=== PATIENT | female | born 1990 | race Caucasian/White ===

== ENCOUNTER 2017-08-06 15:21 | Emergency (ER) | payer OTHER ==
[~2017-08-06] VITALS: Ht 172.7 cm; Wt 56.2 kg
[2017-08-06 15:24] VITALS: BP 123/90; PULSE 90; RESP 15; TEMP 98.5; O2SAT 99
--- NOTE | 2017-08-06 16:03 | PD ---
HPI Chief Complaint: Cold / Flu Symptoms Time Seen by Provider: 15:48 Travel History International Travel<30 days: No Contact w/Intl Traveler<30days: No Traveled to known affect area: No History of Present Illness HPI This 27-year-old female says she is not feeling well. She had some blurry vision earlier and felt very hot associated fever. She has had some nasal congestion and some mild cough. She has a history of lupus, thyroid trouble and hepatitis C. She has never been . Her last period was 2 months ago she has had some nausea PFSH Past Medical History Blood Disorders: No Bipolar Disorder: Yes Anxiety: Yes Cancer: No Cardiovascular Problems: No Diabetes: No Diminished Hearing: No Endocrine: No Genitourinary: No Hepatitis: No Hiatal Hernia: No Inguinal Hernia: Yes (AGE 10 YRS REPAIRED) Musculoskeletal: No Neurologic: No Reproductive: No Immunizations Current: Yes Thyroid Disease: No Tetanus Vaccination: > 5 Years Influenza Vaccination: No ?: Not LMP: 2 mo ago, it is "normal" for her Menopausal: No : 0 Past Surgical History Abdominal Surgery: Yes (RIGHT ING. HERNIA) Cardiac Surgery: No Ear Surgery: No Endocrine Surgery: No Eye Surgery: No Genitourinary Surgery: No Gynecologic Surgery: No Oral Surgery: Yes (WISDOM TEETH EXTRACT.) Pacemaker: No Thoracic Surgery: No Tonsillectomy: Yes Other Surgery: Yes Social History Alcohol Use: No Tobacco Use: Yes (quit, uses vaporizer now) Substance Use: Yes (COCAINE, MARIJUANA IN PAST) Allergies-Medications (Allergen,Severity, Reaction): Coded Allergies: No Known Allergies (Verified , 08/06/17) Reported Meds & Prescriptions Reported Meds & Active Scripts Active No Active Prescriptions or Reported Medications Review of Systems General / Constitutional: No: Fever, Chills Eyes: No: Diploplia HENT: Positive: Headaches Cardiovascular: No: Chest Pain or Discomfort, Palpitations Respiratory: Positive: Sneezing, No: Cough, Shortness of Breath Gastrointestinal: Positive: Nausea, No: Vomiting Genitourinary: No: Urgency, Frequency Musculoskeletal: No: Myalgias Skin: No Rash Neurologic: Positive: Weakness Physical Exam Narrative GENERAL: Well-developed female SKIN: Focused skin assessment warm/dry. HEAD: Atraumatic. Normocephalic. EYES: Pupils equal and round. No scleral icterus. No injection or drainage. ENT: No nasal bleeding or discharge. Mucous membranes pink and moist. NECK: Trachea midline. No JVD. CARDIOVASCULAR: Regular rate and rhythm. No murmur appreciated. RESPIRATORY: No accessory muscle use. Clear to auscultation. Breath sounds equal bilaterally. GASTROINTESTINAL: Abdomen soft, non-tender, nondistended. Hepatic and splenic margins not palpable. MUSCULOSKELETAL: No obvious deformities. No clubbing. No cyanosis. No edema. NEUROLOGICAL: Awake and alert. No obvious cranial nerve deficits. Motor grossly within normal limits. Normal speech. PSYCHIATRIC: Appropriate mood and affect; insight and judgment normal. Data Data Last Documented VS Vital Signs Date Time Temp Pulse Resp B/P (MAP) Pulse Ox O2 Delivery O2 Flow Rate FiO2 08/06/17 15:24 98.5 90 15 123/90 (101) 99 MDM Medical Decision Making Medical Screen Exam Complete: Yes Emergency Medical Condition: Yes Medical Record Reviewed: Yes Differential Diagnosis Differential includes viral syndrome, Narrative Course test is positive. Patient appears otherwise well. I suspect her symptoms are related to . There is no vaginal bleeding or abdominal pain so I don't think further evaluation warranted at this time Diagnosis Primary Impression: Qualified Codes: Z34.90 - Encounter for supervision of normal , unspecified, unspecified trimester Scripts No Active Prescriptions or Reported Meds Disposition: 01 DISCHARGE HOME Condition: Stable Angus Underwood MD Aug 06, 2017 16:03
== END 2017-08-06 16:43 | disposition home or self-care (01) ==
LOC: PHED 15:21
DX: Z32.01 Encounter for pregnancy test, result positive (principal)
CPT/HCPCS: 99282

== ENCOUNTER → 2017-11-03 | Outpatient (CLI) | payer OTHER | LOC: HPND 12:11 | PROVIDERS: ATTEND Obstetrics & Gynecology | DX: O28.0 Abnormal hematological finding on antenatal screening of mother (principal); O98.512 Other viral diseases complicating pregnancy, second trimester; O99.282 Endocrine, nutritional and metabolic diseases complicating pregnancy, second trimester | CPT/HCPCS: 36415; 76811 ==

== ENCOUNTER 2017-12-01 16:50 | Emergency (ER) | payer OTHER ==
[~2017-12-01] VITALS: Ht 172.7 cm; Wt 64.3 kg
[2017-12-01 16:53] VITALS: BP 105/56; PULSE 82; RESP 18; TEMP 99.6; O2SAT 100
[2017-12-01] MEDS ORDERED: ZOFR4TAB PO (17:04)
[2017-12-01] MEDS ORDERED: SODIUM CHLOR 0.9% 1000 ML INJ 1,000 ML IV ONE (17:45)
[2017-12-01 17:58] LABS: AUTOMATED NEUTROPHIL # 4.4 TH/MM3 (1.8-7.7); BASOPHIL # 0.1 TH/MM3 (0-0.2); BASOPHIL % 1.5 % (0.0-2.0); EOSINOPHIL % 0.3 % (0.0-4.0); HEMATOCRIT 34.3 % (35.0-46.0); HEMOGLOBIN 11.5 GM/DL (11.6-15.3); LYMPH % 17.6 % (9.0-44.0); MEAN CORPUSCULAR HEMOGLOBIN 30.5 PG (27.0-34.0); MEAN CORPUSCULAR HGB CONC 33.5 % (32.0-36.0); MEAN PLATELET VOLUME 8.3 FL (7.0-11.0); MONO % 5.7 % (0.0-8.0); MONOCYTE # 0.3 TH/MM3 (0-0.9); NEUT % 74.9 % (16.0-70.0); PLATELET COUNT 145 TH/MM3 (150-450); RED BLOOD COUNT 3.77 MIL/MM3 (4.00-5.30); RED CELL DISTRIBUTION WIDTH 11.8 % (11.6-17.2); WHITE BLOOD COUNT 5.8 TH/MM3 (4.0-11.0)
--- NOTE | 2017-12-01 18:06 | PD ---
HPI Chief Complaint: Cold / Flu Symptoms Time Seen by Provider: 17:31 Travel History International Travel<30 days: No Contact w/Intl Traveler<30days: No Traveled to known affect area: No History of Present Illness HPI Patient is a 27 year old female, 5 months , who comes in complaining of cough, congestion for 5 days. She says she had a fever of 102 this morning. She has been taking Tylenol and over the counter cold medications with minimal relief. She says that she last took any medications 2 hours ago. She says she has body aches and experiences occasional shortness of breath. She did not receive a flu shot this year. Her OB advised she come to the ED to get checked out. PFSH Past Medical History Autoimmune Disease: Yes (Lupus) Blood Disorders: No Bipolar Disorder: Yes Anxiety: Yes Cancer: No Cardiovascular Problems: No Diabetes: No Diminished Hearing: No Endocrine: No Genitourinary: No Hepatitis: No Hiatal Hernia: No Inguinal Hernia: Yes (AGE 10 YRS REPAIRED) Medical other: Yes (Hep C) Musculoskeletal: No Neurologic: No Reproductive: No Immunizations Current: Yes Thyroid Disease: Yes (hypothyroid) Tetanus Vaccination: Unknown Influenza Vaccination: No ?: Menopausal: No : 0 Past Surgical History Abdominal Surgery: Yes (RIGHT ING. HERNIA) Cardiac Surgery: No Ear Surgery: No Endocrine Surgery: No Eye Surgery: No Genitourinary Surgery: No Gynecologic Surgery: No Oral Surgery: Yes (WISDOM TEETH EXTRACT.) Pacemaker: No Thoracic Surgery: No Tonsillectomy: Yes Other Surgery: Yes Social History Alcohol Use: No Tobacco Use: Yes (quit, uses vaporizer now) Substance Use: Yes (COCAINE, MARIJUANA IN PAST) Allergies-Medications (Allergen,Severity, Reaction): Coded Allergies: No Known Allergies (Verified , 08/06/17) Reported Meds & Prescriptions Reported Meds & Active Scripts Active Reported Zofran (Ondansetron HCl) 4 Mg Tab 4 Mg PO Q12HR PRN Review of Systems Except as stated in HPI: all other systems reviewed are Neg General / Constitutional: Positive: Fever HENT: No: Headaches, Lightheadedness Cardiovascular: No: Chest Pain or Discomfort Respiratory: Positive: Cough, Shortness of Breath Gastrointestinal: No: Nausea, Vomiting Genitourinary: No: Urgency, Dysuria Musculoskeletal: Positive: Myalgias, No: Edema Skin: No Rash, No Change in Pigmentation Neurologic: No: Weakness, Dizziness Physical Exam Narrative GENERAL: Awake and alert, in no acute distress. SKIN: Focused skin assessment warm/dry. HEAD: Atraumatic. Normocephalic. EYES: Pupils equal and round. No scleral icterus. ENT: Mucous membranes pink and moist. NECK: Trachea midline. No JVD. CARDIOVASCULAR: Regular rate and rhythm. No murmur appreciated. RESPIRATORY: No accessory muscle use. Clear to auscultation. Breath sounds equal bilaterally. GASTROINTESTINAL: Abdomen soft, non-tender, nondistended. MUSCULOSKELETAL: No obvious deformities. No clubbing. No cyanosis. No edema. NEUROLOGICAL: Awake and alert. No obvious cranial nerve deficits. Motor grossly within normal limits. Normal speech. PSYCHIATRIC: Appropriate mood and affect; insight and judgment normal. Data Data Last Documented VS Vital Signs Date Time Temp Pulse Resp B/P (MAP) Pulse Ox O2 Delivery O2 Flow Rate FiO2 12/01/17 16:53 99.6 82 18 105/56 (72) 100 Orders Orders Complete Blood Count With Diff (12/01/17 17:34) Comprehensive Metabolic Panel (12/01/17 17:34) Iv Access Insert/Monitor (12/01/17 17:34) Influenzae A/B Antigen (12/01/17 17:34) Sodium Chlor 0.9% 1000 Ml Inj (Ns 1000 M (12/01/17 17:45) Labs Laboratory Tests Test 12/01/17 17:55 12/01/17 18:11 White Blood Count 5.8 TH/MM3 Red Blood Count 3.77 MIL/MM3 Hemoglobin 11.5 GM/DL Hematocrit 34.3 % Mean Corpuscular Volume 91.0 FL Mean Corpuscular Hemoglobin 30.5 PG Mean Corpuscular Hemoglobin Concent 33.5 % Red Cell Distribution Width 11.8 % Platelet Count 145 TH/MM3 Mean Platelet Volume 8.3 FL Neutrophils (%) (Auto) 74.9 % Lymphocytes (%) (Auto) 17.6 % Monocytes (%) (Auto) 5.7 % Eosinophils (%) (Auto) 0.3 % Basophils (%) (Auto) 1.5 % Neutrophils # (Auto) 4.4 TH/MM3 Lymphocytes # (Auto) 1.0 TH/MM3 Monocytes # (Auto) 0.3 TH/MM3 Eosinophils # (Auto) 0.0 TH/MM3 Basophils # (Auto) 0.1 TH/MM3 CBC Comment DIFF FINAL Differential Comment Blood Urea Nitrogen 6 MG/DL Creatinine 0.41 MG/DL Random Glucose 84 MG/DL Total Protein 5.8 GM/DL Albumin 2.4 GM/DL Calcium Level 7.7 MG/DL Alkaline Phosphatase 42 U/L Aspartate Amino Transf (AST/SGOT) 30 U/L Alanine Aminotransferase (ALT/SGPT) 28 U/L Total Bilirubin 0.3 MG/DL Sodium Level 137 MEQ/L Potassium Level 3.7 MEQ/L Chloride Level 105 MEQ/L Carbon Dioxide Level 24.2 MEQ/L Anion Gap 8 MEQ/L Estimat Glomerular Filtration Rate 185 ML/MIN MDM Medical Decision Making Medical Screen Exam Complete: Yes Emergency Medical Condition: Yes Medical Record Reviewed: Yes Differential Diagnosis pneumonia vs bronchitis vs influenza Narrative Course A 27-year-old female who comes in complaining of cough, congestion, fever, body aches. Exam shows no acute abnormalities. She is currently afebrile. Labs sent show no acute abnormalities. Flu swab is negative. Patient is refusing chest x-ray. She says she is artery taken azithromycin. I advised her that this is likely a viral illness. She says she would like antibiotics anyways. I did reinforce the fact that this can create resistance to antibiotics and then they will not work when she needs them. She says she still would rather try a different antibiotic. Given a prescription for Augmentin. Advised follow -up with her doctors. Advised to return to the ED as needed for any worsening symptoms. Diagnosis Primary Impression: Bronchitis Patient Instructions: Acute Bronchitis (ED), General Instructions Additional Instructions: Follow-up with your doctor. Drink plenty of fluids. Take Tylenol as needed for fever and pain. Scripts Amoxicillin-Clavulanate (Augmentin) 875-125 Mg Tab 1 TAB PO BID for Infection for 10 Days, #20 TAB 0 Refills Prov: Marie Webster MD 12/01/17 Disposition: 01 DISCHARGE HOME Condition: Stable Marie Webster MD Dec 01, 2017 18:06
[2017-12-01 18:31] LABS: CHLORIDE 105 MEQ/L (98-107); SODIUM (NA) 137 MEQ/L (136-145)
[2017-12-01 18:34] LABS: ALBUMIN 2.4 GM/DL (3.4-5.0); BICARBONATE 24.2 MEQ/L (21.0-32.0); BLOOD UREA NITROGEN 6 MG/DL (7-18); CALCIUM 7.7 MG/DL (8.5-10.1); GLUCOSE,RANDOM 84 MG/DL (74-106)
[2017-12-01 18:37] LABS: ALT (GPT) 28 U/L (10-53); AST (GOT) 30 U/L (15-37); CREATININE 0.41 MG/DL (0.50-1.00); GLOMERULAR FILTRATION RATE 185 ML/MIN (>89)
[2017-12-01 18:39] LABS: TOTAL BILIRUBIN ADULT 0.3 MG/DL (0.2-1.0); TOTAL PROTEIN 5.8 GM/DL (6.4-8.2)
[2017-12-01 18:40] LABS: ALKALINE PHOSPHATASE 42 U/L (45-117)
[2017-12-01] MEDS ORDERED: AUGM875T3 PO (18:46)
== END 2017-12-01 19:08 | disposition home or self-care (01) ==
LOC: PHEFT 16:50
DX: O99.512 Diseases of the respiratory system complicating pregnancy, second trimester (principal); J40 Bronchitis, not specified as acute or chronic; M32.9 Systemic lupus erythematosus, unspecified; F41.9 Anxiety disorder, unspecified; O99.282 Endocrine, nutritional and metabolic diseases complicating pregnancy, second trimester; E03.9 Hypothyroidism, unspecified
CPT/HCPCS: 80053; 85025; 87804; 96360; 99283; J7030

== ENCOUNTER → 2017-12-08 | Outpatient (CLI) | payer OTHER ==
[~2017-12-08] MED LIST: AUGM875T3 PO; ZOFR4TAB PO
== END ==
LOC: HPND 13:08
PROVIDERS: ATTEND Obstetrics & Gynecology
DX: O98.512 Other viral diseases complicating pregnancy, second trimester (principal); O99.282 Endocrine, nutritional and metabolic diseases complicating pregnancy, second trimester; O28.0 Abnormal hematological finding on antenatal screening of mother
CPT/HCPCS: 76816

== ENCOUNTER 2018-02-16 20:36 | Emergency (ER) | payer OTHER ==
--- NOTE | 2018-02-16 21:47 | PD ---
HPI Chief Complaint Complains of a burning severe pain in her upper mid back moved around to her back of her arms and then up in her neck and the back, no nausea vomiting diarrhea, no OB problem no bleeding, leakage,. Date Seen: Feb 16, 2018 Time Seen: 21:40 Travel History International Travel<30 Days: No Contact w/Intl Traveler<30Days: No Known Affected Area: No History of Present Illness HPI 27-year-old white female at [address] Woo for care and has been complaining of a burning she describes fairly severe pain in her upper mid back that radiated around both back of her arms and up the back of her neck. It was not getting better so she came to the hospital. Once she is here the pain is gone, she has no obstetric complaints no bleeding, leakage, heart rate tracing is reactive 33 weeks and there is only an occasional uterine irritability segment and she has no pain. She has not been taking any kind of antacid therapy. Weeks Gestation: 33 Para: 0 : 1 History Past Medical History Narrative Medical Lupus, cholestasis of is on medication Social History Alcohol Use: No Tobacco Use: No Substance Abuse: No Allergies-Medications (Allergen,Severity, Reaction): Coded Allergies: No Known Allergies (Verified , 08/06/17) Home Meds Active Scripts Amoxicillin-Clavulanate (Augmentin) 875-125 Mg Tab, 1 TAB PO BID for Infection for 10 Days, #20 TAB 0 Refills Prov:Marie Webster MD 12/01/17 Reported Medications Ondansetron (Zofran) 4 Mg Tab, 4 MG PO Q12HR Y for NAUSEA OR VOMITING, TAB 0 Refills 12/01/17 Review of Systems General / Constitutional: No: Fever, Weight Gain, Chills, Other Eyes: No: Diploplia, Blurred Vision, Visual changes, Pain, Photophobia HENT: No: Headaches, Vertigo, Lightheadedness Cardiovascular: No: Irregular Rhythm, Chest Pain or Discomfort, Palpitations, Tachycardia, Syncope, Varicosities, Edema, Cyanosis Respiratory: No: Cough, Short of Breath, Other Gastrointestinal: No: Nausea, Vomiting, Diarrhea Genitourinary: No: Decreased Urinary Output, Oliguria Musculoskeletal: No: Limited ROM, Weakness, Cramping, Edema, Pain Skin: No Rash, No Itching, No Dryness, No Lumps, No Change in Pigmentation, No Change in Nails, No Alopecia, No Lesions Neurologic: No: Weakness, Dizziness, Syncope, Focal Abnormalities, Coordination Problem, Headache, Slurred Speech, Seizures Psychiatric: No: Depression, Suicidal Ideations, Homicidal Ideation Endocrine: No: Heat Intolerance, Cold Intolerance, Polydipsia, Polyuria, Other Physical Exam Narrative GENERAL: Well-nourished, well-developed patient. SKIN: Warm and dry. HEAD: Normocephalic and atraumatic. EYES: No scleral icterus. No injection or drainage. ENT: No nasal drainage noted. Mucous membranes pink. Airway patent. NECK: Supple, trachea midline. No JVD. CARDIOVASCULAR: Regular rate and rhythm without murmurs, gallops, or rubs. RESPIRATORY: Breath sounds equal bilaterally. No accessory muscle use. BREASTS: Bilateral exam showed no masses , no retractions, no nipple discharge. ABDOMEN/GI: Abdomen soft, non-tender, bowel sounds present, no rebound, no guarding Gravid to [-33] weeks size Fundal Height: [33-] GENITOURINARY: External Genitalia: intact and normal in appearance BUS glands: [-] Cervix: [post-] Dilatation: [-0] Effacement: [0-] Station: [-3] Presentation: [-] Membranes: [intact ] Uterine Contractions: [Uterine irritability only-] FHT's: Category: [1-] Baseline: [-145] Reactive: [-R] Variability: [mod-] Decels: [none-] EXTREMITIES: No cyanosis or edema. BACK: Nontender without obvious deformity. No CVA tenderness. NEUROLOGICAL: Awake and alert. Motor and sensory grossly within normal limits. Five out of 5 muscle strength in all muscle groups. Normal speech. Data Data Labs Urine dip on OB ED negative MDM Interpretation(s) Patient is 27-year-old white female at [address] Woo for care and is supposed to see her tomorrow for a visit. Patient presents complaining of upper back burning pain that radiates around her both arms and up the back of her neck and now has disappeared after getting here. Quite likely related to gastric reflux Plan Plan for the patient to use [id number] antacids initially with Tums or possibly liquid antacid like Maalox or Mylanta. She can take [id number] Pepcid AC or Zantac 150 to cut down amount of acid in her stomach. Also sleep with her head elevated somewhat to let gravity work for her, and she is to follow-up with her OB provider tomorrow Diagnosis Diagnosis: Primary Impression: GERD (gastroesophageal reflux disease) Additional Impression: 33 weeks gestation of Disposition: 01 DISCHARGE HOME Condition: Stable Domingo Jenkins II, MD Feb 16, 2018 21:47
== END 2018-02-16 23:10 | disposition home or self-care (01) ==
LOC: HOBED 20:36
DX: O99.613 Diseases of the digestive system complicating pregnancy, third trimester (principal); K21.9 Gastro-esophageal reflux disease without esophagitis; O99.89 Other specified diseases and conditions complicating pregnancy, childbirth and the puerperium; M32.9 Systemic lupus erythematosus, unspecified; O26.613 Liver and biliary tract disorders in pregnancy, third trimester; K83.1 Obstruction of bile duct; Z3A.33 33 weeks gestation of pregnancy
CPT/HCPCS: 59025

== ENCOUNTER 2018-02-21 16:39 | Inpatient (IN) | payer OTHER ==
[~2018-02-21] VITALS: Ht 170.2 cm; Wt 71.0 kg
[~2018-02-21 16:39] MED LIST changes: -AUGM875T3 PO
--- NOTE | 2018-02-21 17:51 | PD.CONS ---
HPI History of Present Illness This is a 27 year old who awakened 5 days ago feeling very fatigued first thing in the a.m. Patient got up went to the kitchen to try to fix something for breakfast and had a hot sensation from the mid back up into her head and radiate down into her arms bilateral to her fingers. Patient also noted some right upper quadrant pain, pain scale intense 10 out of 10. She had some outpatient labs and aging done at 20 legs on 01/21/18 indications for ultrasound of the abdomen possible anterior hepatic cholestasis . Conclusion was mild to moderate hydronephrosis of the right kidney. No evidence of gallstone or biliary tract obstruction. There is sludge in the gallbladder with some mild thickening of the common bladder wall. This can be seen with patients with chronic gallbladder disease. Hepatic function panel done on 02/07/18 showed a BM in 3.4, alkaline phosphatase 135 AST 130, ALT 132. Bile acids showed 53.1 drawn on 01/27/18.. These LFTs were repeat labs from the initial ones drawn on 01/27/18; alkaline phosphatase 122, AST 91, ALT 124. . Labs drawn on 02/20/18 showed white count at 14.6, hemoglobin 12.5, hematocrit 37, platelet count 262, total protein 5.9, albumin 3.2, alkaline phosphatase 209, lipase 16 , AST elevated to 2:30, ALT 199, total bilirubin 6.2. Patient currently has urine which is dark orange and clear noted and a cup in the patient's room, sclera icteric, mild skin icterus. Patient has a history of hepatitis C which she states has never been treated. Patient currently still having symptoms of nausea off and on no vomiting. She denies any diarrhea or constipation, no obvious bleeding. (Claribel Garduno) [facility] Past Medical History History of hepatitis C approximately 33 weeks elevated LFTs (Claribel Garduno) Coded Allergies: No Known Allergies (Verified Allergy, Unknown, 02/21/18) Family History No history of colon cancer Mother, gallbladder disease, and fibromyalgia Social History Denies any tobacco, alcohol, no current drug usage She is single, friend is at her bedside (Claribel Garduno) Review of Systems Constitutional: COMPLAINS OF: Fatigue Gastrointestinal: COMPLAINS OF: Abdominal pain, Nausea Psychiatric: COMPLAINS OF: Anxiety (Claribel Garduno) GI Exam Physical Examination HEENT: Pupils round and reactive to light; normocephalic; atraumatic; icteric sclera NECK: Neck is supple, CHEST: Chest is clear now obvious rhonchi or wheezing CARDIAC: Regular rate and rhythm ABDOMEN: Soft, proximally 33 weeks , nontender to light palpation; unable to palpate any hepatosplenomegaly; bowel sounds are present in all four quadrants. EXTREMITIES: No clubbing, cyanosis, or edema. SKIN: Normal; no rash; mild jaundice. CRANE OPERATOR: No focal deficits; alert and oriented times three. (Claribel Garduno) Assessment and Plan Plan Possible cholecystitis although no stones were seen on ultrasound. Gallbladder sludge noted from probable chronic gallbladder disease on ultrasound. No biliary tract obstruction positive thickening of the gallbladder wall. Liver ultrasound showed normal texture without focal lesion or ductal dilatation the portal system is patent. There is no ascites. Elevated LFTs, transaminitis, history of hepatitis C, labs noted to be elevated even more from 3-1-3-25. Unspecified, but possible related to gallbladder versus intrahepatic cholestasis of . Plan CMP today Bilirubin indirect Continue to monitor labs Supportive care Diet as tolerated per attending Further recommendations will be based on symptoms and plan a care This patient was seen per myself and Dr. Ingram, note was written on his behalf (Claribel Garduno) Physician Comments Patient seen and examined Agree with above Continue with current supportive care Monitor lab This is probable cholestasis of I doubt acute cholecystitis We will obtain further testing of the Cam profile and obtain abdominal ultrasound Further recommendations she will depend on hospital course (Juan Ingram MD) Claribel Garduno Feb 21, 2018 17:51 Juan Ingram MD Feb 21, 2018 22:54
[2018-02-21] MEDS: BETAMETHASONE SOD PHOS/ACETATE SUSP 30 MG/5 ML VIAL IM SCH (17:57)
[2018-02-21] MEDS ORDERED: PREN29TA PO (18:05)
[2018-02-21] MEDS ORDERED: BUTA1CAP PO (18:07)
[2018-02-21] MEDS ORDERED: URSO1TAB5 (18:07)
[2018-02-21] MEDS: oxyCODONE/ACETAMINOPHEN 5 MG/325 MG TAB PO PRN (19:20)
[2018-02-21 19:45] LABS: ALBUMIN 2.5 GM/DL (3.4-5.0); ALT (GPT) 190 U/L (10-53); AST (GOT) 227 U/L (15-37); BICARBONATE 24.6 MEQ/L (21.0-32.0); BLOOD UREA NITROGEN 10 MG/DL (7-18); CALCIUM 8.9 MG/DL (8.5-10.1); CHLORIDE 102 MEQ/L (98-107); CREATININE 0.85 MG/DL (0.50-1.00); DIRECT BILIRUBIN ADULT 5.7 MG/DL (0.0-0.2); GLOMERULAR FILTRATION RATE 80 ML/MIN (>89); GLUCOSE,RANDOM 83 MG/DL (74-106); SODIUM (NA) 137 MEQ/L (136-145)
[2018-02-21 19:48] LABS: ALKALINE PHOSPHATASE 229 U/L (45-117); TOTAL BILIRUBIN ADULT 6.5 MG/DL (0.2-1.0); TOTAL PROTEIN 6.5 GM/DL (6.4-8.2)
[2018-02-21 22:15] LABS: BACTERIA, URINE RARE /hpf; BILIRUBIN, URINE MOD (NEG); BLOOD, URINE NEG (NEG); CALCIUM OXALATE CRYSTALS,URINE OCC /hpf; GLUCOSE,URINE NEG (NEG); KETONE, URINE NEG (NEG); NITRITE,URINE NEG (NEG); SQUAMOUS EPITHELIAL CELL URINE 21 /hpf (0-5); URINE LEUKOCYTE ESTERASE TRACE (NEG)
[2018-02-21 22:25] LABS: URINE COLOR LIGHT-BROWN (YELLW/STRAW)
[2018-02-22] MEDS: oxyCODONE/ACETAMINOPHEN 5 MG/325 MG TAB PO PRN ×2 (04:23→13:09)
[2018-02-22 05:30] VITALS: RESP 18
[2018-02-22 05:46] LABS: HEMATOCRIT 37.5 % (35.0-46.0); HEMOGLOBIN 12.6 GM/DL (11.6-15.3); MEAN CELL VOLUME 91.2 FL (80.0-100.0); MEAN CORPUSCULAR HEMOGLOBIN 30.7 PG (27.0-34.0); MEAN CORPUSCULAR HGB CONC 33.7 % (32.0-36.0); MEAN PLATELET VOLUME 9.9 FL (7.0-11.0); PLATELET COUNT 285 TH/MM3 (150-450); RED BLOOD COUNT 4.11 MIL/MM3 (4.00-5.30); WHITE BLOOD COUNT 16.2 TH/MM3 (4.0-11.0)
[2018-02-22 05:55] LABS: PROTHROMBIN TIME - PATIENT 10.4 SEC (9.8-11.6)
[2018-02-22 06:12] LABS: ALBUMIN 2.2 GM/DL (3.4-5.0); AST (GOT) 182 U/L (15-37); BICARBONATE 22.9 MEQ/L (21.0-32.0); BLOOD UREA NITROGEN 10 MG/DL (7-18); CALCIUM 9.1 MG/DL (8.5-10.1); CHLORIDE 102 MEQ/L (98-107); CREATININE 0.76 MG/DL (0.50-1.00); GLOMERULAR FILTRATION RATE 91 ML/MIN (>89); GLUCOSE,RANDOM 101 MG/DL (74-106); SODIUM (NA) 135 MEQ/L (136-145)
[2018-02-22 06:13] LABS: ALT (GPT) 161 U/L (10-53)
[2018-02-22 06:16] LABS: ALKALINE PHOSPHATASE 221 U/L (45-117); TOTAL BILIRUBIN ADULT 5.9 MG/DL (0.2-1.0); TOTAL PROTEIN 6.4 GM/DL (6.4-8.2)
--- NOTE | 2018-02-22 08:05 | PD.OB.ANTE ---
Subjective Interval History IUP at 34 wks with ICP , hx HCV, new onset of epigastric pain with elevated bilirubin, today feeling the same, 2 pain episodes yesterday, good FM. Objective Vital Signs Vital Signs Date Time Temp Pulse Resp B/P (MAP) Pulse Ox O2 Delivery O2 Flow Rate FiO2 02/22/18 05:30 18 Lab & Micro Results Test 02/21/18 16:25 02/21/18 17:30 02/22/18 05:06 02/22/18 05:14 Blood Urea Nitrogen 10 MG/DL 10 MG/DL Creatinine 0.85 MG/DL 0.76 MG/DL Random Glucose 83 MG/DL 101 MG/DL Total Protein 6.5 GM/DL 6.4 GM/DL Albumin 2.5 GM/DL 2.2 GM/DL Calcium Level 8.9 MG/DL 9.1 MG/DL Alkaline Phosphatase 229 U/L 221 U/L Aspartate Amino Transf (AST/SGOT) 227 U/L 182 U/L Alanine Aminotransferase (ALT/SGPT) 190 U/L 161 U/L Total Bilirubin 6.5 MG/DL 5.9 MG/DL Direct Bilirubin 5.7 MG/DL Sodium Level 137 MEQ/L 135 MEQ/L Potassium Level 4.0 MEQ/L 4.3 MEQ/L Chloride Level 102 MEQ/L 102 MEQ/L Carbon Dioxide Level 24.6 MEQ/L 22.9 MEQ/L Anion Gap 10 MEQ/L 10 MEQ/L Estimat Glomerular Filtration Rate 80 ML/MIN 91 ML/MIN Urine Color LIGHT-BROWN Urine Turbidity HAZY Urine pH 6.0 Urine Specific Ruby 1.013 Urine Protein NEG mg/dL Urine Glucose (UA) NEG mg/dL Urine Ketones NEG mg/dL Urine Occult Blood NEG Urine Nitrite NEG Urine Bilirubin MOD Urine Urobilinogen LESS THAN 2.0 MG/DL Urine Leukocyte Esterase TRACE Urine RBC 1 /hpf Urine WBC 3 /hpf Urine Squamous Epithelial Cells 21 /hpf Urine Calcium Oxalate Crystals OCC /hpf Urine Bacteria RARE /hpf Microscopic Urinalysis Comment CULT NOT INDICATED White Blood Count 16.2 TH/MM3 Red Blood Count 4.11 MIL/MM3 Hemoglobin 12.6 GM/DL Hematocrit 37.5 % Mean Corpuscular Volume 91.2 FL Mean Corpuscular Hemoglobin 30.7 PG Mean Corpuscular Hemoglobin Concent 33.7 % Red Cell Distribution Width 14.0 % Platelet Count 285 TH/MM3 Mean Platelet Volume 9.9 FL Prothrombin Time 10.4 SEC Prothromb Time International Ratio 1.0 RATIO Physical Exam GENERAL: Well-nourished, well-developed patient. CARDIOVASCULAR: Regular rate and rhythm without murmurs, gallops, or rubs. RESPIRATORY: Breath sounds equal bilaterally. No accessory muscle use. ABDOMEN/GI: Abdomen soft, non-tender. Fundus: [-] GENITOURINARY: External Genitalia: intact and normal in appearance Cervix: [-] Dilatation: [-] Effacement: [-] Station: [-] Presentation: [-] Membranes: [-] Uterine Contractions: [-] FHT's: Category: [-] Baseline: [-] Reactive: [-] Variability: [-] Decels: [-] EXTREMITIES: No cyanosis or edema, non-tender, without signs of DVT. Assessment and Plan Assessment and Plan IUP at 34 wks with ICP, HCV, new onset of epigastric pain with elevated bilirubin 1. appreciate GI assistance 2. s/p first dose of steroids, second this evening 3. will continue to watch and receive GI input as to plan Dalia Woo MD Feb 22, 2018 08:05
--- NOTE | 2018-02-22 09:52 | RADRPT ---
EXAM DATE/TIME: 02/22/2018 10:00 [place] COMPARISON: No previous studies available for comparison. EXTERNAL COMPARISON : [facility], US ABDOMEN GALLBLADDER, February 18, 2018 INDICATIONS : Abdominal pain. Jaundice. 34 weeks . Follow up gallbladder ultrasound. MEDICAL HISTORY : Hypothyroidism. Lupus. . Bipolar disorder. Anxiety. Substance use. SURGICAL HISTORY : [place] teeth extract. Right inguinal hernia repair. ENCOUNTER: Initial ACUITY: 4-6 days PAIN SCORE: 4/10 LOCATION: Abdomen. MEASUREMENTS: LIVER: 16.7 cm length COMMON DUCT: 3 mm RIGHT KIDNEY: 10.9 x 5.7 x 6.3 cm LEFT KIDNEY: 10.7 x 4.4 x 6.3 cm SPLEEN: 12.8 cm length AORTA: 1.6cm maximal FINDINGS: Gallbladder is filled with sludge and wall is thickened to about 4 mm. No focal abnormalities in the liver. Portal venous flow is normal direction. Common bile duct measure s about 3 mm in diameter. Right kidney unremarkable. No free fluid. CONCLUSION: 1. Gallbladder sludge and gallbladder wall thickening. Negative sonographic Guo's sign. No biliary ductal dilatation. Jacek Hargrove MD on February 22, 2018 at 9:27 Board Certified Radiologist. This report was verified electronically.
--- NOTE | 2018-02-22 10:22 | MH ---
cc: Dalia Woo MD DATE OF ADMISSION: 02/21/2018 HISTORY OF PRESENT ILLNESS: The patient is a 27-year-old white female, G1 at approximately 33 weeks and 6 days gestation with a that has been recently complicated with intrahepatic cholangitis of diagnosed at about 30 weeks of gestation with presenting symptoms of total body itching. At that time, her bile salts were elevated. Her LFTs were elevated. Her bilirubin was normal. We started her on Actigall, which controlled her symptoms, and we started doing biophysical profiles twice weekly for wellbeing with the plan to deliver at 37 weeks. The patient also has a significant past medical history of hepatitis C with a large viral load, however, at the beginning of , she had very normal liver enzymes. She has not had treatment for the hep C yet. Several days ago, she started having mid epigastric pain 1-2 times a day that was intense in nature, radiating to her back, upper shoulders and down her arms. In the last 1-2 days, she has also had a yellowing of her sclerae in her eye. Lab work was done on Wednesday, which revealed the bilirubin has now gone up to a level of 6. Her LFTs continue to remain elevated in the 200 range and for this reason, I have brought her in to the hospital for admission to receive steroids to help accelerate lung maturation in anticipation of the need for a possible early delivery and for the help of the scribing machine operator in solving this problem. The patient also had an outpatient ultrasound of her gallbladder and upper abdomen last week which showed no stones, some mild sludge and some mild gallbladder wall thickening. No other abnormalities noted. PAST MEDICAL HISTORY: As I mentioned, she has hepatitis C from a history of IV drug abuse. She has been sober for almost 2 years. She also has hypothyroidism. She also has another autoimmune disorder which has not truly been identified yet, but with a significantly elevated VALERY. PAST SURGICAL HISTORY: Right inguinal herniorrhaphy and tonsils. MEDICATIONS: Currently are vitamins and Actigall. ALLERGIES TO MEDICATIONS: TINIDAZOLE. SOCIAL HISTORY: Currently, occasional tobacco, but she really has not smoked in quite a while. No alcohol. She did have intravenous IV drug abuse for 11 years on and off. As I mentioned, she has been sober about 2 years. She is single and works in the [employer] industry. FAMILY HISTORY: Lupus. LINOLEUM FLOOR LAYER HISTORY: No abnormal Paps. No STDs. OB HISTORY: G1. PHYSICAL EXAMINATION: GENERAL: Her weight is 148, blood pressure 110/60, pulse 70, she is afebrile. GENERAL: She is resting comfortably in her bed. HEENT: Her sclerae are slightly icteric on exam. CHEST: Her chest is clear to auscultation bilaterally. CARDIAC: Regular rate and rhythm without murmur, rub or gallop. BREASTS: Breasts are without masses, nodes or discharge. ABDOMEN: Soft, nondistended and nontender. The fundus is nontender. We have a fundal height of about 34. PELVIC: Exam was deferred. EXTREMITIES: Without clubbing, cyanosis or edema. NST shows a reactive tracing with a baseline in the 140s and recent biophysical with a score of 10/10 with appropriate weight. ASSESSMENT AND PLAN: Includes a 27-year-old white female, G1 at 33 and 6 days gestation with ICP, history of hep C, elevated bilirubin, mid epigastric pain, possible cholecystitis. Plan will be for admission, steroid injection over the next 2 days, GI consult to try to manage the situation. Dalia Woo MD CCD/DL , 09:42 AM , 10:21 AM
--- NOTE | 2018-02-22 11:10 | HHI.GIFU ---
Subjective Remarks Pt resting in bed Complaints of episodes of pain that begin in her back states spreads to her chest and down her arms and associated with headache Some nausea, unsure if its related to food Tolerating PO with no issues States normal BMs, 2 yesterday (Vy Lewis) Objective Vitals I&O Vital Signs Date Time Temp Pulse Resp B/P (MAP) Pulse Ox O2 Delivery O2 Flow Rate FiO2 02/22/18 05:30 18 Laboratory Laboratory Tests Test 02/21/18 16:25 02/21/18 17:30 02/22/18 05:06 02/22/18 05:14 Blood Urea Nitrogen 10 10 Creatinine 0.85 0.76 Random Glucose 83 101 Total Protein 6.5 6.4 Albumin 2.5 2.2 Calcium Level 8.9 9.1 Alkaline Phosphatase 229 221 Aspartate Amino Transf (AST/SGOT) 227 182 Alanine Aminotransferase (ALT/SGPT) 190 161 Total Bilirubin 6.5 5.9 Direct Bilirubin 5.7 Sodium Level 137 135 Potassium Level 4.0 4.3 Chloride Level 102 102 Carbon Dioxide Level 24.6 22.9 Anion Gap 10 10 Estimat Glomerular Filtration Rate 80 91 Urine Color LIGHT-BROWN Urine Turbidity HAZY Urine pH 6.0 Urine Specific Flora 1.013 Urine Protein NEG Urine Glucose (UA) NEG Urine Ketones NEG Urine Occult Blood NEG Urine Nitrite NEG Urine Bilirubin MOD Urine Urobilinogen LESS THAN 2.0 Urine Leukocyte Esterase TRACE Urine RBC 1 Urine WBC 3 Urine Squamous Epithelial Cells 21 Urine Calcium Oxalate Crystals OCC Urine Bacteria RARE Microscopic Urinalysis Comment CULT NOT INDICATED White Blood Count 16.2 Red Blood Count 4.11 Hemoglobin 12.6 Hematocrit 37.5 Mean Corpuscular Volume 91.2 Mean Corpuscular Hemoglobin 30.7 Mean Corpuscular Hemoglobin Concent 33.7 Red Cell Distribution Width 14.0 Platelet Count 285 Mean Platelet Volume 9.9 Prothrombin Time 10.4 Prothromb Time International Ratio 1.0 Physical Exam HEENT: Normocephalic; (+) icterus CHEST: Even/unlabored CARDIAC: RRR ABDOMEN: Distended () soft, nontender, bowel sounds active EXTREMITIES: No clubbing, cyanosis, or edema. SKIN: (+) jaundice. FIBROUS WALLBOARD INSPECTOR: No focal deficits; alert and oriented times three. (Vy Lewis) Assessment and Plan Plan Assessment: - Elevated LFTs - possibly secondary to cholestasis of . Abdominal US (02/22) Gallbladder sludge and gallbladder wall thickening. Negative sonographic Guo's sign. No biliary duct dilation - Known history of Hepatitis C- unsure of genotype- likely secondary to history of IV drug use- states last use 4 years ago- followed by Dr. Martin outpatient- can not start treatment until after deliver - 36 weeks (02/20) Pt reports episodes of pain/burning sensation with associated sweats that begin in her back, radiate down her arms, into her chest with associated headache. Some nausea, but denies relation to symptoms just mentioned. Labs seem to be trending down with hydration. Will add Ursodiol. Pepcid as needed for symptoms. If pt is complaining of pruritus, Benadryl is OK, category B. Plan Ursodiol Pepcid PRN Benadryl if needed Monitor CMP Further recommendations based on clinical course Patient has been seen and examined by myself and Dr. Ingram and this note is written on his behalf (Vy Lewis) Physician Comments Patient seen and examined Agree with above Continue with current supportive care Monitor labs Doubt any acute cholecystitis at this point Most likely cholestasis of Labs appear to be improving Add ursodiol (Juan Ingram MD) Vy Lewis Feb 22, 2018 11:09 Juan Ingram MD Feb 22, 2018 20:15
[2018-02-22] MEDS ORDERED: FAMOTIDINE 20 MG TAB PO PRN (11:15)
[2018-02-22] MEDS: BETAMETHASONE SOD PHOS/ACETATE SUSP 30 MG/5 ML VIAL IM SCH (18:06)
[2018-02-22] MEDS: URSODIOL 300 MG CAP PO SCH (20:49)
[2018-02-23] MEDS: URSODIOL 300 MG CAP PO SCH (09:30)
--- NOTE | 2018-02-23 12:39 | PD.OB.ANTE ---
Subjective Interval History Pt feeling slightly better this am, 1 pain attack late last night but did not need pain med, no itching with med, good movement Objective Physical Exam GENERAL: Well-nourished, well-developed patient. CARDIOVASCULAR: Regular rate and rhythm without murmurs, gallops, or rubs. RESPIRATORY: Breath sounds equal bilaterally. No accessory muscle use. ABDOMEN/GI: Abdomen soft, non-tender. Fundus: [-] GENITOURINARY: External Genitalia: intact and normal in appearance Cervix: [-] Dilatation: [-] Effacement: [-] Station: [-] Presentation: [-] Membranes: [-] Uterine Contractions: [-] FHT's: Category: [-] Baseline: [-] Reactive: [-] Variability: [-] Decels: [-] EXTREMITIES: No cyanosis or edema, non-tender, without signs of DVT. Assessment and Plan Assessment and Plan IUP at 34 wks 1 dy wks with ICP, HCV..no evidence of acute cholecystitis 1. reviewed case with MFM Dr. Martinez...rec delivery at 35 wks, keep pt in patient, deliver sooner if significant increase in labs happen or well being questioned. 2. Appreciate GI assistance 3. Reviewed case with patient, all ? answered, explained the importance of remaining in the hospital due to the severity of her ICP and chance for sudden change in condition status. 4. will check labs q 2-3 dys and continue twice weekly BPP with twice daily NST 5. Javier consult for planned delivery at 35 wks Dalia Woo MD Feb 23, 2018 12:39
--- NOTE | 2018-02-23 16:47 | HHI.GIFU ---
Subjective Remarks Pt sitting in bedside chair States would really like to go home today Has been advised to stay in the hospital, they are planning on inducing her on Wednesday Denies any pruritus, abdominal pain States the yellowing of her eyes seems to be improving (Vy Lewis) Objective Laboratory Laboratory Tests Test 02/23/18 15:15 Urine Opiates Screen NEG Urine Barbiturates Screen NEG Urine Amphetamines Screen NEG Urine Benzodiazepines Screen NEG Urine Cocaine Screen NEG Urine Cannabinoids Screen NEG Imaging Last Impressions Abdomen Ultrasound 02/22/18 0000 Signed Impressions: Service Date/Time: Thursday, February 22, 2018 10:00 - CONCLUSION: 1. Gallbladder sludge and gallbladder wall thickening. Negative sonographic Guo's sign. No biliary ductal dilatation. Jacek Hargrove MD Physical Exam HEENT: Normocephalic; (+) icterus CHEST: Even/unlabored CARDIAC: RRR ABDOMEN: Distended () soft, nontender, bowel sounds active EXTREMITIES: No clubbing, cyanosis, or edema. SKIN: (+) jaundice. SHOVEL MECHANIC: No focal deficits; alert and oriented times three. (Vy Lewis) Assessment and Plan Plan Assessment: - Elevated LFTs - possibly secondary to cholestasis of . Abdominal US (02/22) Gallbladder sludge and gallbladder wall thickening. Negative sonographic Guo's sign. No biliary duct dilation - Known history of Hepatitis C- unsure of genotype- likely secondary to history of IV drug use- states last use 4 years ago- followed by Dr. Martin outpatient- can not start treatment until after deliver - 36 weeks (02/20) Pt reports episodes of pain/burning sensation with associated sweats that begin in her back, radiate down her arms, into her chest with associated headache. Some nausea, but denies relation to symptoms just mentioned. Labs seem to be trending down with hydration. Will add Ursodiol. Pepcid as needed for symptoms. If pt is complaining of pruritus, Benadryl is OK, category B. (02/23) Pt would really like to go home today, states she has now been advised to stay in the hospital until Wednesday when they are planning on inducing her. No repeat labs from today. States the yellowing of her eyes seems to be improving. Denies nausea, vomiting, abdominal pain. Plan Ursodiol Pepcid PRN Benadryl if needed Repeat labs in AM if still here Further recommendations based on clinical course Patient has been seen and examined by myself and Dr. Ingram and this note is written on his behalf (Vy Lewis) Physician Comments Patient seen and examined Agree with above Continue with current supportive care Monitor labs (Juan Ingram MD) Vy Lewis Feb 23, 2018 16:47 Juan Ingram MD Feb 23, 2018 23:05
--- NOTE | 2018-02-23 18:36 | PD.CONS ---
History of Present Illness Service Neonatology Consult Requested By EVER Andersen/Dr. Joe Kline Reason for Consult Premature Delivery at 35 weeks schedule for week of 02/28/18 Primary Care Physician No Primary Care Physician Diagnoses: (1) Cholecystitis History of Present Illness Consult Maternal Hx: 28y/o, Male fetus at 34 weeks gestation Mother admitted to [facility] with epigastric Pain secondary to Intrahepatic Cholangitis. Maternal risk factors/complications: Positive Heptatitis C, Intrahepatic Cholangitis, Elevated LFTs Maternal Labs: unavailable at time of consult Blood type: O positive Maternal Medications: Betamethasone x2 on 02/21 and 02/22. Social: Marital status: Single, father of baby involve. Family Hx: Substance Abuse: History of Substance Use has been clean since 2014 drug of choice IV Heroine Discussion: Nurse Practitioner met with mother regarding possible delivery at 35 weeks gestation secondary to maternal intrahepatic cholangitis. This consultation included generalized care of the baby in the NICU, common problems, complications and survival and/or disability potential if delivered at this time. Mother was informed regarding the development of their baby currently, an introduction to the NICU, and what to expect at the delivery. The CHILD WELFARE DIRECTOR reviewed the expectations with delivery of an under these circumstances including delivery room atmosphere, infant resuscitation and stabilization. Discuss the possibility of respiratory distress possibly due to transition, feeding difficulties at this gestation, hyperbilirubinemia and the length of stay may be 1 to 2 weeks after delivery. Mother wants to breast feed but is contraindicated due to Hepatitis C. Mother understood the information and had no questions regarding . . Greater than 50% of the consultation time was spent with the patient. Past Family Social History Allergies: Coded Allergies: No Known Allergies (Verified Allergy, Unknown, 02/21/18) Physical Exam Physical Exam GENERAL: This is a well-nourished, well-developed patient, in no apparent distress. SKIN: No rashes, ecchymoses or lesions. Cool and dry. HEAD: Atraumatic. Normocephalic. No temporal or scalp tenderness. EYES: Pupils equal round and reactive. Extraocular motions intact. No scleral icterus. No injection or drainage. ENT: Nose without bleeding, purulent drainage or septal hematoma. Throat without erythema, tonsillar hypertrophy or exudate. Uvula midline. Airway patent. NECK: Trachea midline. No JVD or lymphadenopathy. Supple, nontender, no meningeal signs. CARDIOVASCULAR: Regular rate and rhythm without murmurs, gallops, or rubs. RESPIRATORY: Clear to auscultation. Breath sounds equal bilaterally. No wheezes , rales, or rhonchi. GASTROINTESTINAL: Abdomen soft, non-tender, nondistended. No hepato-splenomegaly , or palpable masses. No guarding. MUSCULOSKELETAL: Extremities without clubbing, cyanosis, or edema. No joint tenderness, effusion, or edema noted. No calf tenderness. Negative Homans sign bilaterally. NEUROLOGICAL: Awake and alert. Cranial nerves II through XII intact. Motor and sensory grossly within normal limits. Five out of 5 muscle strength in all muscle groups. Normal speech. Laboratory Laboratory Tests Test 02/23/18 15:15 Urine Opiates Screen NEG Urine Barbiturates Screen NEG Urine Amphetamines Screen NEG Urine Benzodiazepines Screen NEG Urine Cocaine Screen NEG Urine Cannabinoids Screen NEG Result Diagram: 02/22/18 0514 02/22/18 0506 Amy Walker Feb 23, 2018 18:36
[2018-02-24] MEDS ORDERED: PERC5TAB12 PO (20:37)
[2018-02-24] MEDS ORDERED: URSO300C2 PO (20:37)
== END 2018-02-23 18:23 | disposition left against medical advice (07) | DRG 781 ==
LOC: H2EA 16:39 → OBSVTOIN 02-23 12:44
PROVIDERS: ADMIT Obstetrics & Gynecology; ATTEND Obstetrics & Gynecology
DX: O26.613 Liver and biliary tract disorders in pregnancy, third trimester (principal); K83.0 Cholangitis; B19.20 Unspecified viral hepatitis C without hepatic coma; O99.280 Endocrine, nutritional and metabolic diseases complicating pregnancy, unspecified trimester; E03.9 Hypothyroidism, unspecified; Z3A.33 33 weeks gestation of pregnancy
CPT/HCPCS: 59025; 76700; 80053; 80307; 81001; 82248; 85027; 85610; 86850; 86900; 86901; G0481; J0702

== ENCOUNTER 2018-02-24 19:44 | Inpatient (IN) | payer OTHER ==
[~2018-02-24] VITALS: Ht 170.2 cm; Wt 71.0 kg
[~2018-02-24 19:44] MED LIST changes: +BUTA1CAP PO; +PREN29TA PO; +URSO1TAB5
[2018-02-24] MEDS ORDERED: URSO300C2 PO (20:37)
[2018-02-24] MEDS ORDERED: PERC5TAB12 PO (20:37)
[2018-02-24] MEDS: LACTATED RINGER'S 1000 ML INJ 1,000 ML IV SCH (21:53)
[2018-02-24] MEDS: FAMOTIDINE 20 MG TAB PO PRN (22:06)
[2018-02-25] MEDS: LACTATED RINGER'S 1000 ML INJ 1,000 ML IV SCH (05:15)
--- NOTE | 2018-02-25 08:06 | PD.OB.ANTE ---
Subjective Interval History Pt doing well, good fm, 1 pain episode last pm Objective Vital Signs Vital Signs Date Time Temp Pulse Resp B/P (MAP) Pulse Ox O2 Delivery O2 Flow Rate FiO2 02/25/18 01:00 16 Physical Exam GENERAL: Well-nourished, well-developed patient. CARDIOVASCULAR: Regular rate and rhythm without murmurs, gallops, or rubs. RESPIRATORY: Breath sounds equal bilaterally. No accessory muscle use. ABDOMEN/GI: Abdomen soft, non-tender. Fundus: [-] GENITOURINARY: External Genitalia: intact and normal in appearance Cervix: [-] Dilatation: [-] Effacement: [-] Station: [-] Presentation: [-] Membranes: [-] Uterine Contractions: [-] FHT's: Category:140's reactive Baseline: [-] Reactive: [-] Variability: [-] Decels: [-] EXTREMITIES: No cyanosis or edema, non-tender, without signs of DVT. Assessment and Plan Assessment and Plan IUP at 34 wks 3 dys with ICP, Hep c, jaundice, oligo yesterday with TERRANCE 5.6, signed out AMA 2 dys ago but now back and will stay until induction at 35 wks this Wednesday or earlier if labs are out of control 1. BPP today 2. check labs wednesday Dalia Woo MD Feb 25, 2018 08:06
[2018-02-25] MEDS: URSODIOL 300 MG PO SCH ×3 (13:00→20:00)
[2018-02-25] MEDS: oxyCODONE/ACETAMINOPHEN 5 MG/325 MG TAB PO PRN ×3 (16:17→21:45)
[2018-02-26] MEDS: URSODIOL 300 MG PO SCH ×3 (10:18→17:42)
--- NOTE | 2018-02-26 11:27 | PD.OB.ANTE ---
Subjective Diagnosis: (1) Cholecystitis Diagnosis: Principal Antepartum ROS: Reports: Other (hepatitis and elevated LFT) Objective Physical Exam GENERAL: Well-nourished, well-developed patient. ABDOMEN/GI: Abdomen soft, non-tender. Fundus: [-] GENITOURINARY: External Genitalia: intact and normal in appearance Cervix: [-] Dilatation: [-] Effacement: [-] Station: [-] Presentation: [-] Membranes: [-] Uterine Contractions: [-] FHT's: Category: 1 Baseline: [-] Reactive: [-] Variability: [-] Decels: [-] EXTREMITIES: No cyanosis or edema, non-tender, without signs of DVT. Assessment and Plan Assessment and Plan IUP at 34 wks 4 days with ICP, Hep c, jaundice, oligo resolved 1. BPP today 2. check labs wednesday Marlon Guzman MD Feb 26, 2018 11:27
[2018-02-26] MEDS: oxyCODONE/ACETAMINOPHEN 5 MG/325 MG TAB PO PRN (14:19)
[2018-02-26] MEDS: FAMOTIDINE 20 MG TAB PO PRN (14:19)
--- NOTE | 2018-02-27 06:47 | PD.OB.ANTE ---
Subjective Diagnosis: (1) Cholecystitis Diagnosis: Principal Antepartum ROS: Reports: Other (without complaints 34 5/7 weeks) Objective Physical Exam GENERAL: Well-nourished, well-developed patient. ABDOMEN/GI: Abdomen soft, non-tender. Fundus: [-] GENITOURINARY: External Genitalia: intact and normal in appearance Cervix: [-] Dilatation: [-] Effacement: [-] Station: [-] Presentation: vtx Membranes: [-] Uterine Contractions: [-] FHT's: Category: 1 Baseline: [-] Reactive: [-] Variability: [-] Decels: [-] EXTREMITIES: No cyanosis or edema, non-tender, without signs of DVT. Assessment and Plan Problem List: (1) Cholecystitis ICD Codes: K81.9 - Cholecystitis, unspecified Assessment and Plan IUP at 34 wks 4 days with ICP, Hep c, jaundice, oligo resolved 1. NST today 2. check labs today deliver at 35 weeks Marlon Guzman MD Feb 27, 2018 06:47
[2018-02-27] MEDS: URSODIOL 300 MG PO SCH ×3 (09:00→18:46)
[2018-02-27 11:46] LABS: AUTOMATED NEUTROPHIL # 7.5 TH/MM3 (1.8-7.7); BASOPHIL % 0.4 % (0.0-2.0); EOSINOPHIL # 0.1 TH/MM3 (0-0.4); HEMATOCRIT 39.6 % (35.0-46.0); HEMOGLOBIN 12.9 GM/DL (11.6-15.3); LYMPH % 24.2 % (9.0-44.0); LYMPHOCYTE # 2.7 TH/MM3 (1.0-4.8); MEAN CELL VOLUME 92.6 FL (80.0-100.0); MEAN CORPUSCULAR HEMOGLOBIN 30.1 PG (27.0-34.0); MEAN CORPUSCULAR HGB CONC 32.5 % (32.0-36.0); MEAN PLATELET VOLUME 10.2 FL (7.0-11.0); MONO % 6.5 % (0.0-8.0); MONOCYTE # 0.7 TH/MM3 (0-0.9); NEUT % 67.9 % (16.0-70.0); PLATELET COUNT 340 TH/MM3 (150-450); RED BLOOD COUNT 4.28 MIL/MM3 (4.00-5.30); RED CELL DISTRIBUTION WIDTH 13.8 % (11.6-17.2); WHITE BLOOD COUNT 11.1 TH/MM3 (4.0-11.0)
[2018-02-27 12:11] LABS: ALBUMIN 2.5 GM/DL (3.4-5.0); DIRECT BILIRUBIN ADULT 1.6 MG/DL (0.0-0.2)
[2018-02-27 12:12] LABS: INDIRECT BILIRUBIN 0.3 MG/DL (0.0-0.8); TOTAL BILIRUBIN ADULT 1.9 MG/DL (0.2-1.0); TOTAL PROTEIN 6.4 GM/DL (6.4-8.2)
[2018-02-27] MEDS: oxyCODONE/ACETAMINOPHEN 5 MG/325 MG TAB PO PRN ×2 (12:47→22:59)
[2018-02-27] MEDS: FAMOTIDINE 20 MG TAB PO PRN ×2 (12:47→22:59)
[2018-02-28] MEDS: URSODIOL 300 MG PO SCH ×3 (07:30→18:00)
[2018-02-28] MEDS: FAMOTIDINE 20 MG TAB PO PRN ×2 (09:02→22:16)
--- NOTE | 2018-02-28 12:47 | PD.OB.ANTE ---
Subjective Diagnosis: (1) Cholecystitis Diagnosis: Principal Interval History Pt feeling good, good fm, 1 pain episode per day about. Objective Physical Exam GENERAL: Well-nourished, well-developed patient. CARDIOVASCULAR: Regular rate and rhythm without murmurs, gallops, or rubs. RESPIRATORY: Breath sounds equal bilaterally. No accessory muscle use. ABDOMEN/GI: Abdomen soft, non-tender. Fundus: [-] GENITOURINARY: External Genitalia: intact and normal in appearance Cervix: ft/soft/mid position/-2 Dilatation: [-] Effacement: [-] Station: [-] Presentation: [-] Membranes: [-] Uterine Contractions: [-] FHT's: Category: 140's reactive Baseline: [-] Reactive: [-] Variability: [-] Decels: [-] EXTREMITIES: No cyanosis or edema, non-tender, without signs of DVT. Assessment and Plan Problem List: (1) Cholecystitis ICD Codes: K81.9 - Cholecystitis, unspecified Assessment and Plan IUP at 34 wks 6 days with ICP, Hep c, jaundice, oligo resolved 1. NST today 2. labs improved yesterday 3. cervidil tonight and plan for delivery tomorrow Dalia Woo MD Feb 28, 2018 12:47
[2018-02-28] MEDS ORDERED: levETIRAcetam 500 MG/5 ML VIAL IV ONE (15:58)
[2018-02-28] MEDS ORDERED: SODIUM CHLORIDE 0.9% FLUSH 10 ML FLUSH IV FLUSH PRN ×2 (18:00)
[2018-02-28] MEDS ORDERED: DINOPROSTONE 10 MG INSERT-LEAVE FOR 12 HOURS VAGINAL ONE (18:00)
[2018-02-28] MEDS ORDERED: NS 1000 ML OTHER PRN (18:00)
[2018-02-28] MEDS ORDERED: OXYTOCIN 30 UNITS 500ML PREMIX IV ONE (18:15)
[2018-02-28] MEDS ORDERED: ONDANSETRON HCL 4 MG/2 ML VIAL IV PUSH PRN (18:15)
[2018-02-28] MEDS ORDERED: CITRIC ACID-SODIUM CITRATE LIQ 30 ML UDC PO SCH (18:15)
[2018-02-28] MEDS ORDERED: LIDOCAINE HCL 1% 50 ML VIAL I-DERMAL PRN (18:15)
[2018-02-28] MEDS ORDERED: LIDOCAINE HCL 1% 50 ML VIAL INFIL PRN (18:15)
[2018-02-28] MEDS ORDERED: MINERAL OIL 10 ML VIAL TOPICAL PRN (18:15)
[2018-02-28] MEDS ORDERED: NS 500 ML BOLUS IV PRN (18:30)
[2018-02-28] MEDS ORDERED: NS 1000 ML IV PRN (18:30)
[2018-02-28] MEDS ORDERED: LACTATED RINGER'S 1000 ML BOLUS IV PRN (18:30)
[2018-02-28 18:43] VITALS: RESP 18; TEMP 98.2
[2018-02-28 18:44] VITALS: BP 141/84; PULSE 83
[2018-02-28 20:16] LABS: BILIRUBIN, URINE NEG (NEG); BLOOD, URINE TRACE (NEG); GLUCOSE,URINE NEG (NEG); KETONE, URINE NEG (NEG); NITRITE,URINE NEG (NEG); PH, URINE 6.5 (5.0-8.5); SQUAMOUS EPITHELIAL CELL URINE 5 /hpf (0-5); URINE COLOR YELLOW (YELLW/STRAW); URINE LEUKOCYTE ESTERASE NEG (NEG)
[2018-02-28 21:44] VITALS: BP 138/90; PULSE 70
[2018-02-28 21:45] VITALS: RESP 16
[2018-02-28] MEDS: oxyCODONE/ACETAMINOPHEN 5 MG/325 MG TAB PO PRN (22:16)
[2018-03-01] VITALS (34 sets, daily range): BP systolic 120–158; BP diastolic 65–115; PULSE 65–103; RESP 1–20; TEMP 97.8–98.7; O2SAT 98–100
[2018-03-01] MEDS: LACTATED RINGER'S 1000 ML IV SCH ×2 (02:00→06:55)
[2018-03-01] MEDS ORDERED: OXYTOCIN 30 UNITS/NS 500ML PREMIX IV PRN (06:15)
[2018-03-01] MEDS ORDERED: fentaNYL 2MCG-BUPIV 0.125% INJ 100 ML ONE (07:01)
[2018-03-01] MEDS ORDERED: ePHEDrine/NS 25 MG/5 ML SYRINGE ONE (07:10)
[2018-03-01] MEDS ORDERED: TERBUTALINE INJ 1 MG/ML AMP ONE (08:13)
--- NOTE | 2018-03-01 08:54 | PD.OB.DELI ---
Anesthesia: Epidural Episiotomy: None Vaginal Delivery: Normal, Forceps Nuchal Cord: None Delayed cord clamping (45 sec): Yes Infant: Male Delivery date: Mar 01, 2018 Delivery time: 08:36 Weight: 4-0 Placenta: Spontaneous delivery Laceration: No lacerations, Perineal laceration, 1 deg Repair: Chromic interrupted Estimated blood loss: 200 Dalia Woo MD Mar 01, 2018 08:54
[2018-03-01] MEDS: SODIUM CHLORIDE 0.9% FLUSH 10 ML FLUSH IV FLUSH SCH (09:00)
[2018-03-01] MEDS ORDERED: BENZOCAINE 20% TOPICAL SPRAY 60 ML CAN TOPICAL PRN (09:00)
[2018-03-01] MEDS ORDERED: DOCUSATE SODIUM 50 MG/SENNA 8.6 MG TAB PO PRN (09:00)
[2018-03-01] MEDS ORDERED: WITCH HAZEL 50%/GLYCERIN 12.5% 40 PAD JAR TOPICAL PRN (09:00)
[2018-03-01] MEDS ORDERED: ALUMINUM/MAGNESIUM/SIMETH 30 ML CUP PO PRN (09:00)
[2018-03-01] MEDS ORDERED: SODIUM CHLORIDE 0.9% FLUSH 10 ML FLUSH IV FLUSH PRN (09:00)
[2018-03-01] MEDS ORDERED: OXYTOCIN 30 UNITS-500ML PREMIX 500 ML IV SCH (09:00)
[2018-03-01] MEDS ORDERED: ONDANSETRON ODT 4 MG TAB PO PRN (09:00)
[2018-03-01] MEDS ORDERED: NO SYSTEM NARCOTICS PRN (13:30)
[2018-03-01] MEDS ORDERED: ePHEDrine/NS 25 MG/5 ML SYRINGE IV PUSH PRN (13:30)
[2018-03-01] MEDS ORDERED: DO NOT ADMINISTER ANTICOAGULANTS PRN (13:30)
[2018-03-01] MEDS ORDERED: fentaNYL 2MCG-BUPIV 0.125% 100 ML EPIDURAL SCH (13:30)
[2018-03-01] MEDS ORDERED: MEASLES, MUMPS, RUBELLA VACCINE 0.5 ML VIAL SQ ONE (16:00)
[2018-03-01] MEDS ORDERED: DIPHTH/TETANUS/ACEL PERTUSSIS (BOOSTER) 0.5 ML VIAL/PFS IM ONE (16:00)
[2018-03-01] MEDS ORDERED: ZOLPIDEM TARTRATE 5 MG TAB PO PRN (21:00)
[2018-03-02 06:21] LABS: ALBUMIN 2.4 GM/DL (3.4-5.0); DIRECT BILIRUBIN ADULT 1.5 MG/DL (0.0-0.2)
[2018-03-02 06:23] LABS: INDIRECT BILIRUBIN 0.6 MG/DL (0.0-0.8); TOTAL BILIRUBIN ADULT 2.1 MG/DL (0.2-1.0); TOTAL PROTEIN 6.4 GM/DL (6.4-8.2)
[2018-03-02 08:00] VITALS: BP 135/90; PULSE 76; RESP 20; TEMP 98; O2SAT 96
[2018-03-02] MEDS: SODIUM CHLORIDE 0.9% FLUSH 10 ML FLUSH IV FLUSH SCH (09:00)
[2018-03-02] MEDS: IBUPROFEN 800 MG TAB PO PRN ×2 (12:15→22:14)
[2018-03-02] MEDS: ACETAMINOPHEN 325 MG TAB PO PRN ×2 (12:39→22:13)
--- NOTE | 2018-03-02 13:09 | HHI.OB ---
Subjective Post Day: 1 Remarks Pt doing well Objective Vitals/I&O Vital Signs Date Time Temp Pulse Resp B/P (MAP) Pulse Ox O2 Delivery O2 Flow Rate FiO2 03/02/18 08:00 98.0 76 20 135/90 (105) 96 03/01/18 20:26 98.7 74 19 141/96 (111) 03/01/18 17:00 150/94 (112) 03/01/18 17:00 77 20 03/01/18 15:46 77 20 140/97 (111) 03/01/18 15:46 97.8 100 Objective Remarks GENERAL: Well-nourished, well-developed patient. CARDIOVASCULAR: Regular rate and rhythm without murmurs, gallops, or rubs. RESPIRATORY: Breath sounds equal bilaterally. No accessory muscle use. ABDOMEN/GI: Abdomen soft, non-tender. Fundus: Firm, non-tender at umbilicus. GENITOURINARY: Light to moderate bleeding. EXTREMITIES: No cyanosis or edema, non-tender, without signs of DVT. Medications and IVs Current Medications Medications (Trade) Dose Ordered Sig/Bhupinder Route Start Time Stop Time Status Last Admin Patient Own Medication PT OWN MED: URSOD... TID PO 02/25/18 09:00 02/28/18 18:00 (Pepcid) 20 mg Q6H PRN PO 02/24/18 21:15 02/28/18 22:16 (NS Flush) 2 ml UNSCH PRN IV FLUSH 02/28/18 18:00 (NS Flush) 2 ml UNSCH PRN IV FLUSH 02/28/18 18:00 Sodium Chloride 1,000 ml @ 0 mls/hr UNSCH PRN OTHER 02/28/18 18:00 (Xylocaine 1% Inj (50 ml)) 0.1 ml UNSCH X1 PRN I-DERMAL 02/28/18 18:15 03/20/18 18:14 (Bicitra Liq) 30 ml UNION STEWARD PO 02/28/18 18:15 03/03/18 18:14 (Zofran Inj) 4 mg Q6H PRN IV PUSH 02/28/18 18:15 (fentaNYL INJ) 50 mcg Q1H PRN IV PUSH 02/28/18 18:15 03/01/18 06:47 (fentaNYL INJ) 100 mcg Q1H PRN IV PUSH 02/28/18 18:15 (Muri-Lube Oil) 10 ml UNSCH PRN TOPICAL 02/28/18 18:15 Lactated Ringer's 1,000 ml @ 125 mls/hr Q8H IV 02/28/18 18:30 03/01/18 06:55 Lactated Ringer's 1,000 ml @ 3,000 mls/hr BOLUS PRN IV 02/28/18 18:30 02/28/18 21:39 Sodium Chloride 500 ml @ 1,000 mls/hr BOLUS PRN IV 02/28/18 18:30 Sodium Chloride 1,000 ml @ 100 mls/hr Q10H PRN IV 02/28/18 18:30 Oxytocin 500 ml @ 0 mls/hr TITRATE PRN IV 03/01/18 06:15 (NS Flush) 2 ml BID IV FLUSH 03/01/18 09:00 (NS Flush) 2 ml UNSCH PRN IV FLUSH 03/01/18 09:00 (Tylenol) 650 mg Q4H PRN PO 03/01/18 16:00 03/02/18 12:39 (Motrin) 800 mg Q8H PRN PO 03/01/18 09:00 03/02/18 12:15 (Americaine 20% Top Spr) 1 spray Q4H PRN TOPICAL 03/01/18 09:00 (Tucks Pads) 1 applic QID PRN TOPICAL 03/01/18 09:00 (Court-Colace) 2 tab Q12H PRN PO 03/01/18 09:00 (Ambien) 5 mg HS PRN PO 03/01/18 21:00 (Mag-Al Plus Susp Liq) 15 ml Q8H PRN PO 03/01/18 09:00 (Zofran Odt) 4 mg Q6H PRN PO 03/01/18 09:00 Miscellaneous Information No systemic narcotics to be given except... UNSCH PRN .XX 03/01/18 13:30 03/02/18 13:29 Miscellaneous Information DO NOT ADMINISTER ANY ANTICOAGUL... UNSCH PRN .XX 03/01/18 13:30 03/02/18 13:29 Fentanyl/ Bupivacaine HCl 100 ml @ 0 mls/hr TITRATE EPIDURAL 03/01/18 13:30 (ePHEDrine/NS 25 MG/5 ML SYR) 10 mg UNSCH PRN IV PUSH 03/01/18 13:30 03/02/18 13:29 Assessment/Plan Problem List: (1) Cholecystitis ICD Codes: K81.9 - Cholecystitis, unspecified Assessment and Plan Pt s/p at 35 wks due to ICP worsening by labs and sx...doing well 1. routine care Dalia Woo MD Mar 02, 2018 13:09
[2018-03-02] MEDS ORDERED: KETOROLAC TROMETHAMINE 30 MG/ML (IVP) VIAL IM PRN (14:00)
[2018-03-02 15:15] VITALS: BP 145/87; PULSE 66; RESP 20; RESP 9; O2SAT 99
[2018-03-02 21:03] VITALS: BP 137/93; PULSE 78; RESP 18; TEMP 97.7
[2018-03-03] MEDS: IBUPROFEN 800 MG TAB PO PRN (06:20)
--- NOTE | 2018-03-03 08:19 | HHI.DCPOC ---
Discharge Care Plan Your Health Problems Are: Vaginal delivery Report Symptoms to Your Doctor -Temperature above 100.5 degrees -Redness, of incision or excessive or foul smelling drainage -Unusual pain or calf pain -Increased vaginal bleeding -Painful or difficulty urinating -Feelings of extreme sadness or anxiety after 2 weeks Goals to Promote Your Health * To prevent worsening of your condition and complications * To maintain your health at the optimal level Directions to Meet Your Goals Take your medications as prescribed Follow your dietary instruction Follow activity as directed Ensure plenty of rest for recovery Drink fluids for hydration Keep your appointments as scheduled Take your immunizations and boosters as scheduled If your symptoms worsen call your PCP, if no PCP go to Urgent Care Center or Emergency Room Smoking is Dangerous to Your Health. Avoid second hand smoke Call the 24-hour crisis hotline for domestic abuse at Dalia Woo MD Mar 03, 2018 08:19
[2018-03-03 08:20] VITALS: BP 117/79; PULSE 81; RESP 16; TEMP 97.5; O2SAT 97
--- NOTE | 2018-03-03 08:21 | HHI.DS ---
Admission Date Feb 24, 2018 at 19:44 Admitting Diagnosis Diagnosis: Delivery Date: Mar 01, 2018 Vaginal Delivery: Normal Infant: Male Pt Condition on Discharge: Good Discharge Disposition: Discharge Home Discharge Instructions Diet Instructions: As Tolerated, No Restrictions Activities You Can Perform: Pelvic Rest Dalia Woo MD Mar 03, 2018 08:21
[2018-03-03] MEDS: ACETAMINOPHEN 325 MG TAB PO PRN (12:35)
== END 2018-03-03 15:21 | disposition home or self-care (01) | DRG 774 ==
LOC: H2EA 19:44 → H1EA 03-01 10:31
PROVIDERS: ADMIT Obstetrics & Gynecology; ATTEND Obstetrics & Gynecology
PROC: 3E0P7VZ Introduction of Hormone into Female Reproductive, Via Natural or Artificial Opening (ICD-10-PCS; 2018-02-28)
PROC: 0HQ9XZZ Repair Perineum Skin, External Approach (ICD-10-PCS; 2018-02-28)
PROC: 10E0XZZ Delivery of Products of Conception, External Approach (ICD-10-PCS; principal; 2018-03-01)
DX: O26.62 Liver and biliary tract disorders in childbirth (principal); O98.42 Viral hepatitis complicating childbirth; O41.03X0 Oligohydramnios, third trimester, not applicable or unspecified; K81.9 Cholecystitis, unspecified; B19.20 Unspecified viral hepatitis C without hepatic coma; O70.0 First degree perineal laceration during delivery; Z37.0 Single live birth; Z3A.34 34 weeks gestation of pregnancy
CPT/HCPCS: 59025; 76819; 80076; 80307; 81001; 85025; 86850; 86900; 86901; 87081; 87150; 90707; 90715; G0481; J1953; J2590; J3010; J3105; J7120